=== PATIENT | female | born 1990 | race Caucasian/White ===

== ENCOUNTER 2024-11-03 14:02 | Outpatient (AMB) | payer MEDICAID, SELFPAY ==
[2024-11-03 14:18] VITALS: BP 118/80; PULSE 109; RESP 17; TEMP 36.8; O2SAT 98; BMI 31.4
--- NOTE | 2024-11-03 14:18 | OBCLNT_ITS ---
Vital Signs 11/03/24 14:18 Height 1.65 m Height Method Measured Weight 85.842 kg Weight Measurement Method Standing Scale BMI 31.4 BP 118/80 Blood Pressure Source Automatic Cuff Blood Pressure Location Right Upper Arm Position Sitting Respiration 17 Pulse 109 H Pulse Source Monitor Temp 98.3 F Temp Source Temporal Artery Scan Pulse Oximetry (%) 98 Oxygen Delivery Method Room Air Allergies/Home Meds Allergies & Medications Allergies No Known Allergies Allergy (Verified 11/03/24 14:19) Medication Reconciliation vits no.126-ferrous fum 28 mg iron-folic acid 800 mcg tablet (Classic ) tab PO 11/03/24 [History Confirmed 11/03/24] Intake Visit Data Collection New Patient or Established: New Patient (never been to [facility]) Reason for Visit:: OBI Consent obtained for Telemed Visit: No Seen by Clinical Staff ONLY (RN/MA): No Painter Foreman Required: No Do You Feel Safe at Home: Yes Authorities Contacted: N/A PCP or OBGYN visit in last 3 months: No Hx Now: Yes Are you currently on any form of Control: No Last menstrual period: 08/08/24 Pain Present Currently: No Pain Scale Used: Khoury-Christie/Numerical Pain scale:: 0 Smoking Status Smoking Status: Never smoker Questionnaires Covid-19 Vaccine Questionnaire Has patient been vacinated for Covid-19 Have you been vacinated for Covid-19: Yes PHQ-9 PHQ-2 Over the last 2 weeks, how often have you been bothered by any of the following problems? 1. Little interest or pleasure in doing things: not at all 2. Feeling down, depressed, or hopeless: not at all Total score: 0 PHQ-9 3. Trouble falling or staying asleep, or sleeping too much: Not at all 4. Feeling tired or having little energy: Not at all 5. Poor appetite or overeating: Not at all 6. Feeling bad about yourself - or that you are a failure or have let yourself or your family down: Not at all 7. Trouble concentrating on things, such as reading the newspaper or watching television: Not at all 8. Moving or speaking so slowly that other people could have noticed? - Or the opposite - being so fidgety or restless that you have been moving around a lot more than usual: not at all 9. Thoughts that you would be better off or of hurting yourself in some way: Not at all Total score: 0 If you checked off any problems, how difficult have these problems made it for you to do your work, take care of things at home, or get along with other people?: not difficult at all Source: Developed by Drs. Aroldo Domínguez, Petra Cochran, Irineo Coates and colleagues, with an educational teagan from [employer]. 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 She is approximately 12 to 13 weeks today. She states she was having a hard time finding a doctor in [place]. She had a primary in 2011. She states that they were not sure if she had cysts on her ovaries or if the baby did. So they tried to induce her at [facility] and she did not progress and ended up with a C- section. I have no records. She states her daughter was born weighing 8 pounds and ended up having to have surgery because the baby had cysts on her ovaries. Patient breast-fed 1 month. She is interested in hearing about a today. As far as complaints she has no bleeding no loss of fluids no cramping. 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 OB Ultrasound Indication Indication: Size, dates, viability OB Ultrasound Ultrasound technique: transvaginal Gestational sac assessment: Presence, location, size, shape: Live intrauterine with a crown-rump length of 7.21 cm corresponding to 13 weeks 3 days with cardiac activity at 147 bpm. 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 No thyroid problems. No history of abnormal Pap smears. OB Initial Visit Menstrual History Menstrual reliability: approximate (month known) Flow: heavy Menstrual regularity: irregular Monthly: No Age at menarche: 14 On control pills at conception: No Date of positive home test: 08/27/24 OB History : 2 Para: 1 Hx # Pregnancies: 0 Hx Total # of Abortions (Spontaneous & Elective): 0 # of Living Children: 1 Delivery History 1st : Child's name: PAUL date: 08/18/11 sex: female Gestational age at delivery (weeks): 38 Delivery type: weight (lbs): 3628.739 g History of depression before or after : No Additional comments: CYST Infection History & Risk Evaluation History of STDs: none HIV risk evaluation: low risk Hepatitis B risk evaluation: low risk Patient or partner has history of Genital Herpes: No Genetic Screening & History Genetic Screening/Teratology Counseling - Includes patient, baby's father, or anyone in either family with: 1. Patient's age 35 years or older as of estimated date of delivery: No 2. Thalassemia (Romansh, Uzbek, Mediterranean, or Background); MCV less than 80: No 3. Neural Tube Defect (Meningomyelocele, Spina Bifida, or Anencephaly): No 4. Congenital Heart Defect: No 5. Down Syndrome: No 6. Michael-Sachs (Ashkenazi Moravian, Cajun, English Cook Islander): No 7. Shirley Disease (Ashkenazi Moravian): No 8. Familial Dysautonomia (Ashkenazi Moravian): No 9. Sickle Cell Disease or Trait (): No 10. Hemophilia or other blood disorders: No 11. Muscular Dystrophy: No 12. Cystic Fibrosis: No 13. Manuel's Chorea: No 14. Mental Retardation/Autism: No 15. Other inherited genetic or chromosomal disorder: No 16. Maternal Metabolic Disorder (EG,TYPE 1 Diabetes, PKU): No 17. Patient or baby's father had a child with defects not listed above: No 18. Recurrent loss or a stillbirth: No 19. Medications (including supplements, vitamins, herbs or otc drugs)/illicit/recreational drugs/alcohol since last menstrual period: No 20. Any other: No Comments/Counseling: Patient desires NIPT Infection History 1. Live with someone with TB or exposed to TB: No 2. Rash or viral illness since last menstrual period: No 3. Hepatitis B,C: No Other (see comments) Source: [employer] Review of Systems Review of Systems Narrative Review of Systems: Patient reports fatigue. Bloating. Some breast tenderness. No heavy bleeding. No severe nausea or vomiting. Exam Narrative Physical exam: Fundus is firm approximately 13 weeks size. Well-healed Pfannenstiel skin incision present. General Limitations: no limitations General Appearance: alert, in no apparent distress, comfortable, cooperative, healthy appearing and well groomed Neck Neck exam: Present normal inspection, full ROM and trachea midline Chest Chest inspection: Present normal inspection and symmetric chest wall rise Resp Respiratory exam: Present normal lung sounds bilaterally Card Cardiovascular exam: Present regular rate, normal rhythm and normal heart sounds Extremities Extremities exam: Present normal inspection and full ROM Psych Psychiatric exam: Present normal affect and normal mood Skin Skin exam: Present warm, dry, intact and normal color Office Procedures OB Clinic LOC & Office Proc's Nursing/Assessment Patient Status: Initial/New Patient OB Clinic Nursing Assessment: Medication Reconciliation, Update PMH in EMR and Vital Signs OB Clinic Coordination of Care: Complex Care and Chronic Disease 1-5, Consent,records obtained, informed consent, Education Simp Pt/Fam and Results/Orders obtained Special Needs: Heart tones New Patient Charge New Patient Point Assignment: [id number] 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 NIPT ordered from [facility]. Ultrasound has to be authorized to check dates. (2) Previous section: Status: Acute Plan: Patient desires . We have no op report. I told the patient [facility] does not offer VBACs secondary to the fact we do not have anesthesia in house 24 hours a day. Patient may consider transferring her care elsewhere. She will follow-up in 4 weeks. (3) Rh negative state in antepartum period: Status: Acute Plan: Patient states she went to the ER in [facility] recently for some cramping and nausea. She also had some tachycardia and had an EKG. I have no records. She was told her blood type is O- and that she will need RhoGAM. Additional Plan Follow Up: 4 Weeks
== END 2024-11-03 15:02 | disposition home or self-care (01) ==
LOC: HODSOBC 14:02
PROVIDERS: PCP Obstetrics & Gynecology; Referring Provider Obstetrics & Gynecology; Supervising Provider Obstetrics & Gynecology; Visit Provider Obstetrics & Gynecology
DX: O09.291 Supervision of pregnancy with other poor reproductive or obstetric history, first trimester (principal); O34.219 Maternal care for unspecified type scar from previous cesarean delivery; Z3A.13 13 weeks gestation of pregnancy; O09.891 Supervision of other high risk pregnancies, first trimester; Z67.41 Type O blood, Rh negative
CPT/HCPCS: 99203; G0463

== ENCOUNTER 2024-12-04 13:04 | Outpatient (AMB) | payer MEDICAID, SELFPAY ==
[2024-12-04 13:24] VITALS: BP 112/79; PULSE 93; RESP 18; TEMP 36.7; O2SAT 98; BMI 31.7
--- NOTE | 2024-12-04 13:24 | OBCLNT_ITS ---
Vital Signs 12/04/24 13:24 Height 1.65 m Height Method Stated Weight 86.353 kg Weight Measurement Method Standing Scale BMI 31.7 BP 112/79 Blood Pressure Source Automatic Cuff Blood Pressure Location Left Upper Arm Position Sitting Respiration 18 Pulse 93 Pulse Source Monitor Temp 98.0 F Temp Source Oral Pulse Oximetry (%) 98 Oxygen Delivery Method Room Air Allergies/Home Meds Allergies & Medications Allergies No Known Allergies Allergy (Verified 12/04/24 13:35) Medication Reconciliation vits no.126-ferrous fum 28 mg iron-folic acid 800 mcg tablet (Classic ) tab PO 11/03/24 [History Confirmed 12/04/24] Intake Visit Data Collection New Patient or Established: Established Patient (seen at [facility] within 3 years) Reason for Visit:: CARE Seen by Clinical Staff ONLY (RN/MA): No Pathology Supervisor Required: No Do You Feel Safe at Home: Yes Authorities Contacted: N/A PCP or OBGYN visit in last 3 months: Yes Hx Now: Yes Are you currently on any form of Control: No Pain Present Currently: No Pain Scale Used: Khoury-Christie/Numerical Pain scale:: 0 Smoking Status Smoking Status: Never smoker Questionnaires Covid-19 Vaccine Questionnaire Has patient been vacinated for Covid-19 Have you been vacinated for Covid-19: Yes PHQ-9 PHQ-2 Over the last 2 weeks, how often have you been bothered by any of the following problems? 1. Little interest or pleasure in doing things: not at all 2. Feeling down, depressed, or hopeless: not at all Total score: 0 PHQ-9 3. Trouble falling or staying asleep, or sleeping too much: Not at all 4. Feeling tired or having little energy: Not at all 5. Poor appetite or overeating: Not at all 6. Feeling bad about yourself - or that you are a failure or have let yourself or your family down: Not at all 7. Trouble concentrating on things, such as reading the newspaper or watching television: Not at all 8. Moving or speaking so slowly that other people could have noticed? - Or the opposite - being so fidgety or restless that you have been moving around a lot more than usual: not at all 9. Thoughts that you would be better off or of hurting yourself in some way: Not at all Total score: 0 Source: Developed by Drs. Aroldo Domínguez, Petra Cochran, Irineo Coates and colleagues, with an educational teagan from [employer]. 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 Check bile acids in complete metabolic panel. NIPT 46 XY. Positive SMA send to [facility] Calculator Estimated Delivery Date Method Current WG Current Estimate 05/08/25 Ultrasound #1 17w 6d Other Estimates 05/07/25 LMP (Certain) 18w 0d Expected Delivery Route/Plan 33-year-old -0-0-1 Previous x 1 For repeat Specific Issue/Plans O-/Ab screen -/RNI/RPR NR/ Hep BSag-/HIV-/GC-/Clam-/Urine Cx-/HepC-/ Hgb 12.5/ +SMA NIPT 46 XY Refer to [facility] for +SMA Office Procedures OB Clinic LOC & Office Proc's Nursing/Assessment Patient Status: Established Patient OB Clinic Nursing Assessment: Medication Reconciliation, Update PMH in EMR and Vital Signs OB Clinic Coordination of Care: Complex Care and Chronic Disease 1-5, Consent,records obtained, informed consent, Education Simp Pt/Fam, 1 Ins Authorization, Lab and Imaging orders, Results/Orders obtained and Staff clarify orders Special Needs: Heart tones Established Patient Charge Established Patient Point Assignment: 150 Established Patient Point Charge: EP Level 4 (120-155) Assessment & Plan Diagnosis / Problem List (1) SMA (spinal muscular atrophy): Status: Acute Plan: To maternal- medicine for consult ultrasound and testing for father the baby (2) Rh negative state in antepartum period: Status: Acute Plan: RhoGAM at 28 (3) Previous section: Status: Acute Plan: For repeat at 39 weeks (4) : Status: Acute Qualifiers: Weeks of gestation: 17 weeks Qualified Code(s): Z3A.17 - 17 weeks gestation of
== END 2024-12-04 13:52 | disposition home or self-care (01) ==
LOC: HODSOBC 13:04
PROVIDERS: Supervising Provider Obstetrics & Gynecology; Visit Provider Obstetrics & Gynecology
DX: O09.292 Supervision of pregnancy with other poor reproductive or obstetric history, second trimester (principal); O34.219 Maternal care for unspecified type scar from previous cesarean delivery; O09.892 Supervision of other high risk pregnancies, second trimester; O99.352 Diseases of the nervous system complicating pregnancy, second trimester; G12.9 Spinal muscular atrophy, unspecified; Z3A.17 17 weeks gestation of pregnancy; Z67.91 Unspecified blood type, Rh negative
CPT/HCPCS: 99214; G0463

== ENCOUNTER 2024-12-25 14:55 | Outpatient (AMB) | payer MEDICAID, SELFPAY ==
[2024-12-25 15:06] VITALS: BP 109/71; PULSE 94; RESP 18; TEMP 36.8; O2SAT 97; BMI 31.8
--- NOTE | 2024-12-25 15:06 | AMB.OBVISIT ---
Vital Signs 12/25/24 15:06 Height 1.65 m Height Method Stated Weight 86.863 kg Weight Measurement Method Standing Scale BMI 31.8 BP 109/71 Blood Pressure Source Automatic Cuff Blood Pressure Location Left Upper Arm Position Sitting Respiration 18 Pulse 94 Pulse Source Monitor Temp 98.3 F Temp Source Oral Pulse Oximetry (%) 97 Oxygen Delivery Method Room Air Allergies/Home Meds Allergies & Medications Allergies No Known Allergies Allergy (Verified 12/25/24 15:19) Medication Reconciliation vits no.126-ferrous fum 28 mg iron-folic acid 800 mcg tablet (Classic ) tab PO 11/03/24 [History Confirmed 12/25/24] Intake Visit Data Collection New Patient or Established: Established Patient (seen at [facility] within 3 years) Reason for Visit:: CARE Seen by Clinical Staff ONLY (RN/MA): No Deck Steward Required: No Do You Feel Safe at Home: Yes Authorities Contacted: N/A PCP or OBGYN visit in last 3 months: Yes Hx Now: Yes Are you currently on any form of Control: No Pain Present Currently: No Pain Scale Used: Khoury-Christie/Numerical Pain scale:: 0 Smoking Status Smoking Status: Never smoker Questionnaires Covid-19 Vaccine Questionnaire Has patient been vacinated for Covid-19 Have you been vacinated for Covid-19: Yes PHQ-9 PHQ-2 Over the last 2 weeks, how often have you been bothered by any of the following problems? 1. Little interest or pleasure in doing things: not at all 2. Feeling down, depressed, or hopeless: not at all Total score: 0 PHQ-9 3. Trouble falling or staying asleep, or sleeping too much: Not at all 4. Feeling tired or having little energy: Not at all 5. Poor appetite or overeating: Not at all 6. Feeling bad about yourself - or that you are a failure or have let yourself or your family down: Not at all 7. Trouble concentrating on things, such as reading the newspaper or watching television: Not at all 8. Moving or speaking so slowly that other people could have noticed? - Or the opposite - being so fidgety or restless that you have been moving around a lot more than usual: not at all 9. Thoughts that you would be better off or of hurting yourself in some way: Not at all Total score: 0 Source: Developed by Drs. Aroldo Domínguez, Petra Cochran, Irineo Coates and colleagues, with an educational teagan from [employer]. 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 Check bile acids in complete metabolic panel. NIPT 46 XY. Positive SMA send to [facility] 12/25/24 <del>?</del> 20w 6d 86.863 kg (+1862.938 g) 109/71 20 154 active Patient states she stopped using a skin she reports good movement no contractions or loss of fluids. Product and the itchiness is gone. I did check liver test from last visit and ordered bile acids however the bile acids were not drawn by [facility] Patient is being referred to maternal- medicine for positive SMA. Her insurance cover Dr. Long. We will call to make sure she has an appointment with Dr. Vogt. [facility] Calculator Estimated Delivery Date Method Current WG Current Estimate 05/08/25 Ultrasound #1 20w 6d Other Estimates 05/07/25 LMP (Certain) 21w 0d Expected Delivery Route/Plan 33-year-old -0-0-1 Previous x 1 For repeat Rh-: Patient will need RhoGAM Specific Issue/Plans O-/Ab screen -/RNI/RPR NR/ Hep BSag-/HIV-/GC-/Clam-/Urine Cx-/HepC-/ Hgb 12.5/ +SMA NIPT 46 XY Refer to [facility] for +SMA Office Procedures OBC Clinic LOC & Office Proc's Nursing/Assessment Patient Status: Established Patient OB Clinic Nursing Assessment: Medication Reconciliation, Update PMH in EMR and Vital Signs OB Clinic Coordination of Care: Complex Care and Chronic Disease 1-5, Consent,records obtained, informed consent, Education Simp Pt/Fam, Lab and Imaging orders, Results/Orders obtained and Staff clarify orders Special Needs: Heart tones Established Patient Charge Established Patient Point Assignment: 135 Established Patient Point Charge: EP Level 4 (120-155) Assessment & Plan Diagnosis / Problem List (1) SMA (spinal muscular atrophy): Status: Acute Plan: Referred to M (2) Rh negative state in antepartum period: Status: Acute Plan: RhoGAM at 28 weeks (3) Previous section: Status: Acute Plan: For scheduled elective repeat at 39 weeks (4) : Status: Acute Qualifiers: Weeks of gestation: 20 weeks Qualified Code(s): Z3A.20 - 20 weeks gestation of
== END 2024-12-25 15:50 | disposition home or self-care (01) ==
LOC: HODSOBC 14:55
PROVIDERS: Supervising Provider Advanced Practice Midwife; Visit Provider Advanced Practice Midwife
DX: O09.892 Supervision of other high risk pregnancies, second trimester (principal); O09.292 Supervision of pregnancy with other poor reproductive or obstetric history, second trimester; O34.219 Maternal care for unspecified type scar from previous cesarean delivery; O99.352 Diseases of the nervous system complicating pregnancy, second trimester; Z67.91 Unspecified blood type, Rh negative; G12.9 Spinal muscular atrophy, unspecified; Z3A.20 20 weeks gestation of pregnancy
CPT/HCPCS: 99214; G0463